=== PATIENT | female | born 1960 ===

== ENCOUNTER 2017-05-06 10:10 | Day surgery (SDC) | payer OTHER, BC ==
[2017-05-02 17:58] VITALS: BMI 35.4
[2017-05-06] MEDS ORDERED: Lactated Ringer's 1,000 ML IV ONE ×2 (10:57→13:05)
[2017-05-06] MEDS ORDERED: Lidocaine 1% Inj (20ml) ONE (11:58)
[2017-05-06] MEDS ORDERED: Midazolam 2 MG/2 ML VIAL ONE (12:04)
[2017-05-06] MEDS ORDERED: Propofol 10 mg/ml Inj (20 ML) ONE (12:04)
--- NOTE | 2017-05-06 12:26 | CP.SDSHP ---
Same Day Surgery H & P - History Proposed Procedure: US guided FNA of right thyroid nodule Pre-Op Diagnosis: right thyroid nodule - Allergies Allergies: Allergies ZAMZAM Inhibitors Allergy (Intermediate, Verified 05/02/17 17:59) ANGIOEDEMA - Physical Exam Vital Signs: Vital Signs 05/06/17 05/06/17 05/06/17 10:26 10:30 12:20 Temperature 98.3 F 97.6 F Pulse Rate 89 89 87 Respiratory 20 18 Rate Blood Pressure 153/83 H 166/83 H O2 Sat by Pulse 95 100 Oximetry Mental Status: Alert & Oriented x3 Neuro: WNL Heart: WNL - Impression Impression: Pt with right thyroid nodule referred for US guided FNA. Pt. Evaluated Today:Candidate for Anesthesia & Procedure: Yes (ASA 2 Malampati 4) - Date & Time Date: 05/06/17 Time: 12:00 Short Stay Discharge - Short Stay Discharge Admitting Diagnosis/Reason for Visit: E04.1 Referrals: Vasiliy Spears MD [Primary Care Provider] - Progress Note/Discharge Note with Instructions: S/P RIGHT thyroid FNA.
--- NOTE | 2017-05-06 12:28 | PCM.SURG1 ---
Surgeon's Initial Post Op Note - Surgeon's Notes Surgeon: Chavez Price MD Internal Medicine Physician Assistant: NONE Type of Anesthesia: IV Sedation, Local Pre-Operative Diagnosis: thyroid nodule. Operative Findings: 1.9 cm right thyroid nodule Post-Operative Diagnosis: Right thyroid nodule Operation Performed: US guided FNA of thyroid nodule. Specimen/Specimens Removed: 25 g FNA x 4 passes Estimated Blood Loss: EBL {In ML}: 0 Blood Products Given: N/A Drains Used: No Drains Post-Op Condition: Good Date of Surgery/Procedure: 05/06/17 Time of Surgery/Procedure: 12:25
[2017-05-06] MEDS ORDERED: Lactated Ringer's 1,000 ML IV SCH (12:33)
[2017-05-06 13:36] VITALS: RESP 18
[2017-05-06 13:52] VITALS: BP 147/97; PULSE 74; TEMP 98; O2SAT 98
--- NOTE | 2017-05-07 14:13 | US ---
PROCEDURE: Date of Procedure: 05/06/2017 PROCEDURE: 1. Ultrasound guided FNA of right thyroid nodule, CPT 26875 2. Ultrasound guidance for FNA, [address] Medications: 3 cc 1% Lidocaine, patient was sedated by anesthesiologist along with physiologic monitoring HISTORY: Enlarged right thyroid nodule. TECHNIQUE: Following informed consent and procedure time-out, a limited ultrasound patient's neck confirmed the presence of a 1.9 cm complex right thyroid nodule which is predominantly solid. After the patient's neck was prepped and draped in the usual sterile fashion, the skin was anesthetized with 1% lidocaine. Ultrasound-guided fine needle aspiration was then performed of the dominant right thyroid nodule. A total of 4 passes were made into the nodule with 25 gauge needle under ultrasound guidance. The FNA specimen was sent for routine pathology. Post biopsy ultrasound showed no hematoma. IMPRESSION: Ultrasound-guided FNA of the dominant right thyroid nodule.
== END 2017-05-06 12:55 | disposition home or self-care (01) ==
LOC: H.OPSURG 10:10
PROVIDERS: ATTEND Internal Medicine Endocrinology, Diabetes & Metabolism
DX: E04.1 Nontoxic single thyroid nodule (principal)

== ENCOUNTER 2018-05-19 09:31 | Inpatient (IN) | payer OTHER, BC ==
[2018-05-19 09:38] VITALS: BMI 35.4
[2018-05-19] MEDS ORDERED: guaiFENesin-DM 600-30 mg ER Tab PO ONE (11:08)
--- NOTE | 2018-05-19 11:11 | ED PDOC ---
HPI: CCC, URI, Sore Throat Chief Complaint (Provider): Cold like symptoms/vomiting History Per: Patient History/Exam Limitations: no limitations Onset/Duration Of Symptoms: Days <Jessika Peres - Last Filed: 05/19/18 14:43> <Larry Mae - Last Filed: 05/20/18 14:41> Time Seen by Provider: 05/19/18 10:12 Chief Complaint (Nursing): GI Problem Additional Complaint(s): 57 y/o Female with PMHx of HTN, and Hypothyroidism presents to ED complaining cold like symptoms since last Friday. Patient states that last friday she started with nasal congestion, runny nose, productive cough associated with green sputum production, low grade fevers, body aches. Started taking Z-pack on Friday, Tylenol, and mucinex by herself. Reports this morning she had 3 NBNB emesis, but denies abdominal pain, urinary symptoms, diarrheas. States she feels her symptoms are not getting better. Denies headaches, neck pain, dizziness, chest pain, SOB, chills. 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 PMD: Dr. Spears (Jessika Peres) Supervising Attending Note - Supervising Attending Note The Documented history was done by the: Physician Assembler [employer], Attending Physician The documented physical exam was done by the: Physician Assembler [employer], Attending Physician The documented procedures were done by the: Physician Assembler [employer]orescent Lights, Attending Physician - Attestation: I have personally seen and examined this patient.: Yes I have fully participated in the care of the patient.: Yes I have reviewed all pertinent clinical information, including history, physical exam and plan: Yes <Larry Mae - Last Filed: 05/20/18 14:41> Past Medical History - Medical History PMH: HTN, Hypothyroidism Denies: Chronic Kidney Disease - Surgical History Surgical History: Endoscopy - Family History Family History: States: Unknown Family Hx - Social History Current smoker - smoking cessation education provided: No Ex-Smoker (has not smoked in the last 12 months): No Alcohol: None Drugs: Denies <Jessika Peres - Last Filed: 05/19/18 14:43> Reviewed: Historical Data, Nursing Documentation, Vital Signs <Larry Mae - Last Filed: 05/20/18 14:41> Vital Signs: Last Vital Signs Temp 99.2 F 05/20/18 12:10 Pulse 81 05/20/18 12:10 Resp 20 05/20/18 12:10 BP 137/71 05/20/18 09:02 Pulse Ox 99 05/20/18 12:10 - Home Medications Home Medications: Ambulatory Orders Medication Instructions Recorded amLODIPine [Norvasc] 10 mg PO DAILY 05/02/17 Azithromycin [Z-Cali] 250 mg PO ASDIR 05/19/18 Levothyroxine [Synthroid] 50 mg PO DAILY 05/19/18 Multivitamin [Multi-Vitamin Daily] 1 tab PO DAILY 05/19/18 hydroCHLOROthiazide [Hydrodiuril] 25 mg PO DAILY 05/19/18 - Allergies Allergies/Adverse Reactions: Allergies Allergy/AdvReac Type Severity Reaction Status Date / Time ZAMZAM Inhibitors Allergy Intermediate ANGIOEDEMA Verified 05/02/17 17:59 Curb-65 Severity Score - CURB-65 Severity Score Respiratory Rate greater than/equal to 30: No Systolic BP <90 or Diastolic BP less than/equal 60mmHg: No Age >64: No Curb-65 Score: 0 Percentage 30-day mortality: 0.6% <Jessika Peres - Last Filed: 05/19/18 14:43> - CURB-65 Severity Score Confusion: No Bun >19mg/dl (>7mmol/L): No Curb-65 Score: 0 Percentage 30-day mortality: 0.6% <Larry Mae - Last Filed: 05/20/18 14:41> Review of Systems ROS Statement: Except As Marked, All Systems Reviewed And Found Negative (as per HPI) <Jessika Peres - Last Filed: 05/19/18 14:43> ROS Statement: Except As Marked, All Systems Reviewed And Found Negative <Larry Mae - Last Filed: 05/20/18 14:41> Physical Exam - Reviewed Nursing Documentation Reviewed: Yes Vital Signs Reviewed: Yes - Physical Exam Appears: Positive for: Non-toxic, No Acute Distress Head Exam: Positive for: ATRAUMATIC, NORMOCEPHALIC Skin: Positive for: Normal Color, Warm, Dry. Negative for: Mottled, Cyanosis Eye Exam: Positive for: Normal appearance. Negative for: Conjunctival injection , Scleral icterus ENT: Positive for: Nasal Congestion, Pharyngeal Erythema. Negative for: Sinus Pain/Drainage, Tonsillar Exudate Neck: Positive for: Normal, Supple Cardiovascular/Chest: Positive for: Regular Rate, Rhythm. Negative for: Chest Non Tender, Edema, Murmur, Bradycardia, Tachycardia Respiratory: Positive for: Normal Breath Sounds. Negative for: Decreased Breath Sounds, Accessory Muscle Use, Crackles, Rales, Rhonchi, Wheezing, Respiratory Distress Gastrointestinal/Abdominal: Positive for: Bowel Sounds (present), Soft. Negative for: Tenderness, Distended, Guarding, Rebound Neurologic/Psych: Positive for: Alert, Oriented <Jessika Peres - Last Filed: 05/19/18 14:43> - Reviewed Nursing Documentation Reviewed: Yes <Larry Mae - Last Filed: 05/20/18 14:41> - Laboratory Results Result Diagrams: 05/19/18 13:25 05/19/18 13:25 - ECG O2 Sat by Pulse Oximetry: 95 <Jessika Peres - Last Filed: 05/19/18 14:43> - Laboratory Results Result Diagrams: 05/20/18 05:45 05/20/18 05:45 <Larry Mae - Last Filed: 05/20/18 14:41> Medical Decision Making: Fever -associated with upper respiratory symptoms, and cough -most likely 2/2 to URI -CXR -influenza A B -Tylenol for fever -mucinex DM for cough Vomiting -possible associated with URI -zofran 4 mg ODT once -PO challenge after zofran re-evaluation case discussed with Dr. Mae Re-evaluation Influenza test negative CXR reported as left lower lobe infiltrate send for VBG, Blood Cx, CBC start abx: ceftriaxone 1 gm IV Levofloxacin 750 mg IV Patient will be admitted under Dr. Spears service. Dr. Spears was called by Dr. Mae. Pending return call from Dr. Spears (Jessika Peres) Disposition - Patient ED Disposition Is Patient to be Admitted: Yes Discussed With : Larry Mae - Disposition Disposition Time: 14:45 <Jessika Peres - Last Filed: 05/19/18 14:43> - Patient ED Disposition Is Patient to be Admitted: Yes Discussed With DrAndres: Vasiliy Spears Doctor Will See Patient In The: Hospital Counseled Patient/Family Regarding: Studies Performed, Diagnosis - Pt Status Changed To: Hospital Disposition Of: Inpatient - Admit Certification Admit to Inpatient:: After my assessment, the patient will require hospitalization for at least two midnights. This is because of the severity of symptoms shown, intensity of services needed, and/or the medical risk in this patient being treated as an outpatient. - POA Present On Arrival: None Core Measure Indicators: Pneumonia <Larry Mae A - Last Filed: 05/20/18 14:41> - Clinical Impression Clinical Impression: Pneumonia, Sepsis - Disposition Condition: FAIR
--- NOTE | 2018-05-19 12:28 | RAD ---
HISTORY: cough COMPARISON: No prior. TECHNIQUE: Chest PA and lateral FINDINGS: LUNGS: Left lower lobe infiltrate. . There also appears to be some minor linear atelectasis and or scarring right lung base. PLEURA: No significant pleural effusion identified. No pneumothorax apparent. CARDIOVASCULAR: Normal. OSSEOUS STRUCTURES: No significant abnormalities. VISUALIZED UPPER ABDOMEN: Normal. OTHER FINDINGS: None. IMPRESSION: Left lower lobe infiltrate. There also appears to be some minor linear atelectasis and or scarring right lung base. .
[2018-05-19] MEDS ORDERED: levoFLOXacin 750 mg in D5W 150 ML BAG IVPB STA (12:52)
[2018-05-19] MEDS ORDERED: levoFLOXacin 750 mg in D5W 750 MG/150 ML BAG IVPB ONE ×2 (13:15→13:20)
[2018-05-19 13:32] LABS: VENOUS BLOOD GAS BASE EXCESS 4.7 mmol/L (0.0-2.0); VENOUS BLOOD GAS PCO2 42 mmHg (40-60); VENOUS BLOOD GAS PO2 46 mm/Hg (30-55); VENOUS BLOOD PH 7.45 (7.32-7.43)
[2018-05-19 13:41] LABS: BASO % 0.4 % (0.0-2.0); HEMOGLOBIN 11.4 g/dL (12.0-16.0); LYMPH # 0.6 K/uL (1.0-4.3); LYMPH % 7.3 % (20.0-40.0); MEAN CELL VOLUME 79.1 fl (81.0-99.0); MEAN CORPUSCULAR HEMOGLOBIN 26.5 pg (27.0-31.0); MEAN CORPUSCULAR HGB CONC 33.5 g/dL (33.0-37.0); MEAN PLATELET VOLUME 8.7 fl (7.2-11.7); MONO # 0.2 K/uL (0.0-0.8); MONO % 2.1 % (0.0-10.0); NEUT # 7.2 K/uL (1.8-7.0); NEUT % 90.2 % (50.0-75.0); PLATELET COUNT 352 K/uL (130-400); RBC 4.31 Mil/uL (3.80-5.20); RED CELL DISTRIBUTION WIDTH 17.9 % (11.5-14.5)
[2018-05-19 13:44] LABS: BLOOD UREA NITROGEN 19 mg/dl (7-17); CALCIUM 8.9 mg/dL (8.4-10.2); GFR AFRICAN-AMERICAN > 60; GFR NON-AFRICAN AMERICAN > 60
[2018-05-19] MEDS ORDERED: Potassium Chloride 20 mEq ER Tab PO ONE ×2 (13:44→14:27)
--- NOTE | 2018-05-19 14:09 | CARD ---
APPROVED REPORT EKG Measurement Heart [id number] <Conclusion> Normal sinus rhythm Nonspecific ST abnormality Abnormal ECG
[2018-05-19 14:59] LABS: BANDS 2 % (0-2); LYMPHOCYTE 10 % (20-50); MONOCYTE 1 % (0-10); NEUTROPHIL 87 % (42-75); PLATELET ESTIMATE NORMAL (NORMAL); TOTAL CELLS COUNTED 100
[2018-05-19 15:00] LABS: ANISOCYTOSIS SLIGHT; HYPOCHROMIC SLIGHT
[2018-05-19] MEDS ORDERED: Sodium Chloride 3% for Inhalation 4 ML VIAL.NEB IH PRN (19:34)
[2018-05-19] MEDS: Potassium Chl 40 mEq in D5-1/2 1,000 ML IV SCH (22:03)
[2018-05-20] MEDS: Levothyroxine 50 MCG TAB PO SCH (06:27)
[2018-05-20 06:38] LABS: BASO % 0.3 % (0.0-2.0); EOS % 0.1 % (0.0-4.0); HEMOGLOBIN 10.8 g/dL (12.0-16.0); LYMPH # 0.9 K/uL (1.0-4.3); LYMPH % 13.6 % (20.0-40.0); MEAN CELL VOLUME 77.7 fl (81.0-99.0); MEAN CORPUSCULAR HGB CONC 34.8 g/dL (33.0-37.0); MEAN PLATELET VOLUME 8.5 fl (7.2-11.7); MONO # 0.5 K/uL (0.0-0.8); NEUT # 5.3 K/uL (1.8-7.0); RBC 3.99 Mil/uL (3.80-5.20); RED CELL DISTRIBUTION WIDTH 17.5 % (11.5-14.5); WHITE BLOOD COUNT 6.8 K/uL (4.8-10.8)
[2018-05-20 07:07] LABS: T4 9.18 ug/dl (5.5-11.0)
[2018-05-20 07:14] LABS: BLOOD UREA NITROGEN 12 mg/dl (7-17); GFR AFRICAN-AMERICAN > 60; GFR NON-AFRICAN AMERICAN > 60
--- NOTE | 2018-05-20 08:54 | CP.PCM.HP ---
History of Present Illness - History of Present Illness History of Present Illness: 57 YR OLD FEMALE ADMITTED VIA THE ER BECAUSE OF COUGH,SORETHROAT,NAUSEA AND VOMITING AND CXR FINDING OF PNEUMONIA. HISTORY OF URI SYMPTOMS X SEVERAL DAYS,NOT CONTROLLED BY ZITHROMAX. HX OF HYPOTHYROIDISM AND HYPERTENSION. Present on Admission - Present on Admission Any Indicators Present on Admission: Yes Past Patient History - Past Medical History & Family History Past Medical History?: Yes - Past Social History Alcohol: None Drugs: Denies - CARDIAC Hx Hypertension: Yes - PULMONARY Hx Respiratory Disorders: No - NEUROLOGICAL Hx Neurological Disorder: No - HEENT Hx HEENT Problems: No - RENAL Hx Chronic Kidney Disease: No - ENDOCRINE/METABOLIC Hx Endocrine Disorders: Yes Hx Hypothyroidism: Yes - HEMATOLOGICAL/ONCOLOGICAL Hx Blood Disorders: No - INTEGUMENTARY Hx Dermatological Problems: No - MUSCULOSKELETAL/RHEUMATOLOGICAL Hx Musculoskeletal Disorders: No Hx Falls: No - GASTROINTESTINAL Hx Gastrointestinal Disorders: No - GENITOURINARY/GYNECOLOGICAL Hx Genitourinary Disorders: No - PSYCHIATRIC Hx Psychophysiologic Disorder: No Hx Substance Use: No - SURGICAL HISTORY Hx Surgeries: No - ANESTHESIA Hx Anesthesia: Yes Hx Anesthesia Reactions: No Meds Allergies/Adverse Reactions: Allergies Allergy/AdvReac Type Severity Reaction Status Date / Time ZAMZAM Inhibitors Allergy Intermediate ANGIOEDEMA Verified 05/02/17 17:59 Physical Exam - Constitutional Appears: Well, In Acute Distress - Head Exam Head Exam: ATRAUMATIC, NORMAL INSPECTION, NORMOCEPHALIC - Eye Exam Eye Exam: EOMI, Normal appearance, PERRL Pupil Exam: NORMAL ACCOMODATION, PERRL - ENT Exam ENT Exam: Mucous Membranes Moist, Normal Exam - Neck Exam Neck exam: Positive for: Normal Inspection - Respiratory Exam Respiratory Exam: Prolonged Expiratory Phase, Rales, NORMAL BREATHING PATTERN - Cardiovascular Exam Cardiovascular Exam: REGULAR RHYTHM - GI/Abdominal Exam GI & Abdominal Exam: Normal Bowel Sounds, Soft. absent: Tenderness - Rectal Exam Rectal Exam: NORMAL INSPECTION - Extremities Exam Extremities exam: Positive for: normal inspection - Back Exam Back exam: NORMAL INSPECTION - Neurological Exam Neurological exam: Alert, CN II-XII Intact, Normal Gait, Oriented x3, Reflexes Normal - Psychiatric Exam Psychiatric exam: Normal Affect, Normal Mood - Skin Skin Exam: Dry, Intact, Normal Color, Warm Results - Vital Signs Recent Vital Signs: Last Vital Signs Temp 98.4 F 05/20/18 08:15 Pulse 86 05/20/18 08:15 Resp 18 05/20/18 08:15 BP 137/71 05/20/18 08:15 Pulse Ox 98 05/20/18 08:15 - Labs Result Diagrams: 05/20/18 05:45 05/20/18 05:45 Labs: Laboratory Results - last 24 hr 05/19/18 05/19/18 05/19/18 12:00 13:00 13:25 WBC RBC Hgb Hct MCV MCH MCHC RDW Plt Count MPV Neut % (Auto) Lymph % (Auto) Kay % (Auto) Eos % (Auto) Baso % (Auto) Neut # (Auto) Lymph # (Auto) Kay # (Auto) Eos # (Auto) Baso # (Auto) Neutrophils % (Manual) Band Neutrophils % Lymphocytes % (Manual) Monocytes % (Manual) Platelet Estimate Hypochromasia (manual) Anisocytosis (manual) pO2 46 VBG pH 7.45 H VBG pCO2 42 VBG HCO3 28.2 VBG Total CO2 30.5 H VBG O2 Sat (Calc) 87.5 H VBG Base Excess 4.7 H VBG Potassium 2.7 L Sodium 138.0 140 Chloride 104.0 101 Glucose 128 H Lactate 1.6 FiO2 21.0 Potassium 2.9 L Carbon Dioxide 27 Anion Gap 15 BUN 19 H Creatinine 0.8 Est GFR ( Amer) > 60 Est GFR (Non-Af Amer) > 60 Random Glucose 123 H Calcium 8.9 Thyroxine (T4) TSH 3rd Generation Venous Blood Potassium 2.7 L Influenza Typ A,B (EIA) Negative for flu a/b 05/19/18 05/20/18 05/20/18 13:25 05:45 05:45 WBC 8.0 6.8 RBC 4.31 3.99 Hgb 11.4 L 10.8 L Hct 34.1 31.0 L MCV 79.1 L D 77.7 L MCH 26.5 L 27.0 MCHC 33.5 34.8 RDW 17.9 H 17.5 H Plt Count 352 344 MPV 8.7 8.5 Neut % (Auto) 90.2 H 78.0 H Lymph % (Auto) 7.3 L 13.6 L Kay % (Auto) 2.1 8.0 Eos % (Auto) 0.0 0.1 Baso % (Auto) 0.4 0.3 Neut # (Auto) 7.2 H 5.3 Lymph # (Auto) 0.6 L 0.9 L Kay # (Auto) 0.2 0.5 Eos # (Auto) 0.0 0.0 Baso # (Auto) 0.0 0.0 Neutrophils % (Manual) 87 H Band Neutrophils % 2 Lymphocytes % (Manual) 10 L Monocytes % (Manual) 1 Platelet Estimate Normal Hypochromasia (manual) Slight Anisocytosis (manual) Slight pO2 VBG pH VBG pCO2 VBG HCO3 VBG Total CO2 VBG O2 Sat (Calc) VBG Base Excess VBG Potassium Sodium 138 Chloride 101 Glucose Lactate FiO2 Potassium 3.2 L Carbon Dioxide 26 Anion Gap 14 BUN 12 Creatinine 0.7 Est GFR ( Amer) > 60 Est GFR (Non-Af Amer) > 60 Random Glucose 147 H Calcium 8.0 L Thyroxine (T4) 9.18 TSH 3rd Generation 1.70 Venous Blood Potassium Influenza Typ A,B (EIA) - Imaging and Cardiology Chest x-ray Status: Report reviewed by me (PNEUMONIA LLL) Assessment & Plan - Assessment and Plan (Free Text) Assessment: PNEUMONIA LLL HYPERTENSION HYPOTHYROIDISM HYPOKALEMIA Plan: IV ANTIBIOTICS INFECTIOUS DZ CONSULT OXYGEN K+SUPPLEMENTS - Date & Time Date: 05/20/18 Time: 08:57
[2018-05-20] MEDS ORDERED: levoFLOXacin 500 mg in D5W 500 MG/100 ML BAG IVPB SCH (09:00)
[2018-05-20] MEDS: Lactobacillus Acidophilus 500 MU Cap PO SCH ×2 (09:02→17:38)
[2018-05-20] MEDS: Potassium Chl 40 mEq in D5-1/2 1,000 ML IV SCH ×2 (09:04→20:33)
[2018-05-20] MEDS: levoFLOXacin 500 mg in D5W 500 MG/100 ML BAG IVPB SCH (09:06)
[2018-05-20] MEDS: Promethazine DM 12.5 mg-30 mg/10 ml Syrup PO PRN ×2 (12:06→20:37)
--- NOTE | 2018-05-20 13:12 | CP.PCM.CON ---
History of Present Illness - History of Present Illness History of Present Illness: 57 y/o Female presents to ED complaining cold like symptoms since last Friday. Patient states that last friday she started with nasal congestion, runny nose, productive cough associated with green sputum production, low grade fevers, body aches. Started taking Z-pack on Friday, Tylenol, and mucinex by herself. Reports this morning she had 3 NBNB emesis, but denies abdominal pain, urinary symptoms, diarrheas. States she feels her symptoms are not getting better. Denies headaches, neck pain, dizziness, chest pain, SOB, chills. 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 Found to have LLL infiltrate - Medical History PMH: HTN, Hypothyroidism Denies: Chronic Kidney Disease Review of Systems - Review of Systems All systems: reviewed and no additional remarkable complaints except - Constitutional Constitutional: As Per HPI - EENT Eyes: absent: As Per HPI, Blind Spots, Blurred Vision, Change in Vision, Decreased Night Vision, Diplopia, Discharge, Dry Eye, Exophthalmos, Floaters, Irritation, Itchy Eyes, Loss of Peripheral Vision, Pain, Photophobia, Requires Corrective Lenses, Sees Flashes, Spots in Vision, Tunnel Vision, Other Visual Disturbances, Loss of Vision, Other Ears: absent: As Per HPI, Decreased Hearing, Ear Discharge, Ear Pain, Tinnitus, Abnormal Hearing, Disequilibrium, Dizziness, Other Nose/Mouth/Throat: absent: As Per HPI, Epistaxis, Nasal Congestion, Nasal Discharge, Nasal Obstruction, Nasal Trauma, Nose Pain, Post Nasal Drip, Sinus Pain, Sinus Pressure, Bleeding Gums, Change in Voice, Dental Pain, Dry Mouth, Dysphagia, Halitosis, Hoarsness, Lip Swelling, Mouth Lesions, Mouth Pain, Odynophagia, Sore Throat, Throat Swelling, Tongue Swelling, Facial Pain, Neck Pain, Neck Mass, Other - Cardiovascular Cardiovascular: absent: As Per HPI, Acrocyanosis, Chest Pain, Chest Pain at Rest , Chest Pain with Activity, Claudication, Diaphoresis, Dyspnea, Dyspnea on Exertion, Edema, Irregular Heart Rhythm, Pain Radiating to Arm/Neck/Jaw, Leg Edema, Leg Ulcers, Lightheadedness, Orthopnea, Palpitations, Paroxysmal Nocturnal Dyspnea, Pedal Edema, Radiating Pain, Rapid Heart Rate, Slow Heart Rate, Syncope, Other - Respiratory Respiratory: As Per HPI, Cough. absent: Dyspnea, Hemoptysis - Gastrointestinal Gastrointestinal: absent: As Per HPI, Abdominal Pain, Belching, Bloating, Change in Bowel Habits, Change in Stool Character, Coffee Ground Emesis, Constipation, Cramping, Diarrhea, Dyspepsia, Dysphagia, Early Satiety, Excessive Flatus, Fecal Incontinence, Heartburn, Hematemesis, Hematochezia, Loose Stools, Melena, Nausea, Odynophagia, Temesmus, Vomiting, Other - Genitourinary Genitourinary: absent: As Per HPI, Change in Urinary Stream, Difficulty Urinating, Dysuria, Flank Pain, Hematuria, Pyuria, Nocturia, Urinary Incontinence, Urinary Frequency, Urinary Hesitance, Urinary Urgency, Voiding Freq/Small Amts, Freq UTI, Hx Renal/Bladder Calculi, Hx /Renal Surgery, Bladder Distension, Other - Reproductive: Female Reproductive:Female: absent: As Per HPI, Amenorrhea, Amenorrhea/ Control, Currently Menstual, Cycle <21 Days, Cycle >35 Days, Cycle Variable, Menses 1-7 Days, Menses >/= 8 Days, Menses Variable, Cycle > 4 Weeks Between, No Menses for 6 Months, Heavy Menses, Light Menses, Normal Menses, Spotting Between Cycles , S/P Hysterectomy, Menopausal, Post Menopausal, Premenarche, Abnormal Vaginal Bleeding, Dysmenorrhea, Dyspareunia, Genital Lesions, Genital Pruritis, Pelvic Pain, Prolapse Symptoms, Sexual Dysfunction, Vaginal Discharge, Vaginal Dryness , Vaginal Odor, Vaginal Pruritis, Other - Menstruation Menstruation: absent: As Per HPI, Amenorrhea, Amenorrhea/ Control, Currently Menstual, Cycle <21 Days, Cycle >35 Days, Cycle Variable, Menses 1-7 Days, Menses >/= 8 Days, Menses Variable, Cycle > 4 Weeks Between, No Menses for 6 Months, Heavy Menses, Light Menses, Normal Menses, Spotting Between Cycles , S/P Hysterectomy, Menopausal, Post Menopausal, Premenarche, Abnormal Vaginal Bleeding, Dysmenorrhea, Other - Musculoskeletal Musculoskeletal: absent: As Per HPI, Abnormal Gait, Arthralgias, Atrophy, Back Pain, Deformity, Joint Swelling, Limited Range of Motion, Loss of Height, Muscle Cramps, Muscle Weakness, Myalgias, Neck Pain, Numbness, Radiating Pain into Limb, Stiffness, Tingling, Other - Integumentary Integumentary: absent: As Per HPI, Acne, Alopecia, Bleeding Lesions, Change in Hair, Change in Nails, Change in Pigmentation, Changing Lesions, Dry Skin, Erythema, Furuncle, Hirsutism, Lesions, New Lesions, Non-Healing Lesions, Photosensitivity, Pruritus, Rash, Skin Pain, Skin Ulcer, Sores, Striae, Swelling , Unusual Bruising, Wounds, Jaundice, Other - Neurological Neurological: absent: As Per HPI, Abnormal Gait, Abnormal Hearing, Abnormal Movements, Abnormal Speech, Behavioral Changes, Burning Sensations, Confusion, Convulsions, Disequilibrium, Dizziness, Numbness, Focal Weakness, Frequent Falls , Headaches, Lack of Coordination, Loss of Vision, Memory Loss, Paresthesias, Radicular Pain, Restless Legs, Sensory Deficit, Syncope, Tingling, Tremor, Vertigo, Weakness, Other Visual Disturbances, Other - Psychiatric Psychiatric: absent: As Per HPI, Abnormal Sleep Pattern, Anhedonia, Anxiety, Auditory Hallucinations, Behavioral Changes, Change in Appetite, Change in Libido, Confusion, Depression, Difficulty Concentrating, Hallucinations, Homicidal Ideation, Hopelessness, Irritability, Memory Loss, Mood Swings, Panic Attacks, Paranoia, Suicidal Ideation, Visual Hallucinations, Tactile Hallucinations, Other - Endocrine Endocrine: absent: As Per HPI, Change in Body Appearance, Change in Libido, Cold Intolorance, Deepening of Voice, Excessive Sweating, Fatigue, Flushing, Heat Intolorance, Increase in Ring/Shoe/Hat Size, Palpitations, Polydipsia, Polyphagia, Polyuria, Other - Hematologic/Lymphatic Hematologic: absent: As Per HPI, Easy Bleeding, Easy Bruising, Lymphadenopathy, Other Past Patient History - Past Medical History & Family History Past Medical History?: Yes - Past Social History Alcohol: None Drugs: Denies - CARDIAC Hx Hypertension: Yes - PULMONARY Hx Respiratory Disorders: No - NEUROLOGICAL Hx Neurological Disorder: No - HEENT Hx HEENT Problems: No - RENAL Hx Chronic Kidney Disease: No - ENDOCRINE/METABOLIC Hx Endocrine Disorders: Yes Hx Hypothyroidism: Yes - HEMATOLOGICAL/ONCOLOGICAL Hx Blood Disorders: No - INTEGUMENTARY Hx Dermatological Problems: No - MUSCULOSKELETAL/RHEUMATOLOGICAL Hx Musculoskeletal Disorders: No Hx Falls: No - GASTROINTESTINAL Hx Gastrointestinal Disorders: No - GENITOURINARY/GYNECOLOGICAL Hx Genitourinary Disorders: No - PSYCHIATRIC Hx Psychophysiologic Disorder: No Hx Substance Use: No - SURGICAL HISTORY Hx Surgeries: No - ANESTHESIA Hx Anesthesia: Yes Hx Anesthesia Reactions: No Meds Allergies/Adverse Reactions: Allergies Allergy/AdvReac Type Severity Reaction Status Date / Time ZAMZAM Inhibitors Allergy Intermediate ANGIOEDEMA Verified 05/02/17 17:59 - Medications Medications: Current Medications Acetaminophen (Tylenol 325mg Tab) 650 mg PO Q4 PRN PRN Reason: Fever >100.4 F Last Admin: 05/19/18 20:20 Dose: 650 mg Amlodipine Besylate (Norvasc) 10 mg PO DAILY [facility] Last Admin: 05/20/18 09:02 Dose: 10 mg Famotidine (Pepcid) 20 mg IVP Q12 [facility] Last Admin: 05/20/18 09:11 Dose: 20 mg Levofloxacin/Dextrose (Levaquin 500mg) 500 mg in 100 mls @ 100 mls/hr IVPB DAILY [facility] PRN Reason: Protocol Last Admin: 05/20/18 09:06 Dose: 100 mls/hr Ceftriaxone Sodium 1 gm/ (Sodium Chloride) 100 mls @ 100 mls/hr IVPB DAILY [facility] PRN Reason: Protocol Last Admin: 05/20/18 10:29 Dose: 100 mls/hr Potassium Chloride/Dextrose/Sod Cl (Potassium Chl 40 Meq In D5-1/2ns) 1,000 mls @ 100 mls/hr IV .Q10H [facility] Stop: 05/20/18 19:47 Last Admin: 05/20/18 09:04 Dose: 100 mls/hr Lactobacillus Acidophilus (Bacid Acidophilus) 1 cap PO BID [facility] Last Admin: 05/20/18 09:02 Dose: 1 cap Levothyroxine Sodium (Synthroid) 50 mcg PO DAILY@0630 [facility] Last Admin: 05/20/18 06:27 Dose: 50 mcg Promethazine HCl/Dextromethorphan (Phenergan Dm Syrup) 10 ml PO Q6 PRN PRN Reason: Cough Last Admin: 05/20/18 12:06 Dose: 10 ml Physical Exam - Constitutional Appears: Non-toxic, Chronically Ill - Head Exam Head Exam: ATRAUMATIC, NORMAL INSPECTION, NORMOCEPHALIC - Eye Exam Eye Exam: absent: Scleral icterus - ENT Exam ENT Exam: Mucous Membranes Dry, Normal External Ear Exam - Neck Exam Neck exam: Negative for: Lymphadenopathy - Respiratory Exam Respiratory Exam: Decreased Breath Sounds, Prolonged Expiratory Phase, Rales, Rhonchi - Cardiovascular Exam Cardiovascular Exam: REGULAR RHYTHM, +S1, +S2 - GI/Abdominal Exam GI & Abdominal Exam: Diminished Bowel Sounds, Distended, Soft. absent: Tenderness - Rectal Exam Rectal Exam: Deferred - Exam Exam: NORMAL INSPECTION - Extremities Exam Extremities exam: Positive for: pedal pulses present. Negative for: calf tenderness, pedal edema, tenderness - Back Exam Back exam: absent: CVA tenderness (L), CVA tenderness (R), paraspinal tenderness - Neurological Exam Neurological exam: Alert, CN II-XII Intact, Oriented x3, Reflexes Normal - Psychiatric Exam Psychiatric exam: Normal Mood - Skin Skin Exam: Dry Results - Vital Signs Recent Vital Signs: Last Vital Signs Temp 99.2 F 05/20/18 12:10 Pulse 81 05/20/18 12:10 Resp 20 05/20/18 12:10 BP 137/71 05/20/18 09:02 Pulse Ox 99 05/20/18 12:10 - Labs Result Diagrams: 05/20/18 05:45 05/20/18 05:45 Labs: Laboratory Results - last 24 hr 05/19/18 05/19/18 05/19/18 13:00 13:25 13:25 WBC 8.0 RBC 4.31 Hgb 11.4 L Hct 34.1 MCV 79.1 L D MCH 26.5 L MCHC 33.5 RDW 17.9 H Plt Count 352 MPV 8.7 Neut % (Auto) 90.2 H Lymph % (Auto) 7.3 L [place] % (Auto) 2.1 Eos % (Auto) 0.0 Baso % (Auto) 0.4 Neut # (Auto) 7.2 H Lymph # (Auto) 0.6 L [place] # (Auto) 0.2 Eos # (Auto) 0.0 Baso # (Auto) 0.0 Neutrophils % (Manual) 87 H Band Neutrophils % 2 Lymphocytes % (Manual) 10 L Monocytes % (Manual) 1 Platelet Estimate Normal Hypochromasia (manual) Slight Anisocytosis (manual) Slight pO2 46 VBG pH 7.45 H VBG pCO2 42 VBG HCO3 28.2 VBG Total CO2 30.5 H VBG O2 Sat (Calc) 87.5 H VBG Base Excess 4.7 H VBG Potassium 2.7 L Sodium 138.0 140 Chloride 104.0 101 Glucose 128 H Lactate 1.6 FiO2 21.0 Potassium 2.9 L Carbon Dioxide 27 Anion Gap 15 BUN 19 H Creatinine 0.8 Est GFR ( Amer) > 60 Est GFR (Non-Af Amer) > 60 Random Glucose 123 H Calcium 8.9 Thyroxine (T4) TSH 3rd Generation Venous Blood Potassium 2.7 L 05/20/18 05/20/18 05:45 05:45 WBC 6.8 RBC 3.99 Hgb 10.8 L Hct 31.0 L MCV 77.7 L MCH 27.0 MCHC 34.8 RDW 17.5 H Plt Count 344 MPV 8.5 Neut % (Auto) 78.0 H Lymph % (Auto) 13.6 L [place] % (Auto) 8.0 Eos % (Auto) 0.1 Baso % (Auto) 0.3 Neut # (Auto) 5.3 Lymph # (Auto) 0.9 L [place] # (Auto) 0.5 Eos # (Auto) 0.0 Baso # (Auto) 0.0 Neutrophils % (Manual) Band Neutrophils % Lymphocytes % (Manual) Monocytes % (Manual) Platelet Estimate Hypochromasia (manual) Anisocytosis (manual) pO2 VBG pH VBG pCO2 VBG HCO3 VBG Total CO2 VBG O2 Sat (Calc) VBG Base Excess VBG Potassium Sodium 138 Chloride 101 Glucose Lactate FiO2 Potassium 3.2 L Carbon Dioxide 26 Anion Gap 14 BUN 12 Creatinine 0.7 Est GFR ( Amer) > 60 Est GFR (Non-Af Amer) > 60 Random Glucose 147 H Calcium 8.0 L Thyroxine (T4) 9.18 TSH 3rd Generation 1.70 Venous Blood Potassium Assessment & Plan (1) Pneumonia Status: Acute - Assessment and Plan (Free Text) Assessment: LLL pneumonia in a 57 yo female with Hx HTN and hypothyroid Has been traveling and stayed at hotels in [place] await Legionella ag anemia noted- routine follow up with purchase analyst recommended sgree with current IV antibiotics
[2018-05-21] MEDS: Promethazine DM 12.5 mg-30 mg/10 ml Syrup PO PRN ×2 (01:42→23:04)
[2018-05-21] MEDS: Levothyroxine 50 MCG TAB PO SCH (06:46)
[2018-05-21] MEDS: Lactobacillus Acidophilus 500 MU Cap PO SCH ×2 (08:07→16:42)
[2018-05-21] MEDS: levoFLOXacin 500 mg in D5W 500 MG/100 ML BAG IVPB SCH (08:08)
--- NOTE | 2018-05-21 09:00 | CP.PCM.PN ---
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 Objective - Vital Signs/Intake and Output Vital Signs (last 24 hours): Temp Pulse Resp BP Pulse Ox 97 F L 86 20 140/77 97 05/21/18 08:30 05/21/18 08:30 05/21/18 08:30 05/21/18 08:30 05/21/18 08:30 Intake and Output: 05/21/18 05/21/18 06:59 18:59 Intake Total 1750 Balance 1750 - Medications Medications: Current Medications Acetaminophen (Tylenol 325mg Tab) 650 mg PO Q4 PRN PRN Reason: Fever >100.4 F Last Admin: 05/19/18 20:20 Dose: 650 mg Amlodipine Besylate (Norvasc) 10 mg PO DAILY [facility] Last Admin: 05/20/18 09:02 Dose: 10 mg Famotidine (Pepcid) 20 mg IVP Q12 [facility] Last Admin: 05/20/18 20:33 Dose: 20 mg Levofloxacin/Dextrose (Levaquin 500mg) 500 mg in 100 mls @ 100 mls/hr IVPB DAILY [facility] PRN Reason: Protocol Last Admin: 05/21/18 08:08 Dose: 100 mls/hr Ceftriaxone Sodium 1 gm/ (Sodium Chloride) 100 mls @ 100 mls/hr IVPB DAILY [facility] PRN Reason: Protocol Last Admin: 05/20/18 10:29 Dose: 100 mls/hr Lactobacillus Acidophilus (Bacid Acidophilus) 1 cap PO BID [facility] Last Admin: 05/21/18 08:07 Dose: 1 cap Levothyroxine Sodium (Synthroid) 50 mcg PO DAILY@0630 [facility] Last Admin: 05/21/18 06:46 Dose: 50 mcg Promethazine HCl/Dextromethorphan (Phenergan Dm Syrup) 10 ml PO Q6 PRN PRN Reason: Cough Last Admin: 05/21/18 01:42 Dose: 10 ml - Labs Labs: 05/20/18 05:45 05/20/18 05:45 - Constitutional Appears: No Acute Distress - Head Exam Head Exam: ATRAUMATIC, NORMAL INSPECTION, NORMOCEPHALIC - Eye Exam Eye Exam: EOMI, Normal appearance, PERRL Pupil Exam: NORMAL ACCOMODATION, PERRL - ENT Exam ENT Exam: Mucous Membranes Moist, Normal Exam - Neck Exam Neck Exam: Full ROM, Normal Inspection. absent: Lymphadenopathy - Respiratory Exam Respiratory Exam: Prolonged Expiratory Phase, Rales, NORMAL BREATHING PATTERN - Cardiovascular Exam Cardiovascular Exam: REGULAR RHYTHM, +S1, +S2. absent: Murmur - GI/Abdominal Exam GI & Abdominal Exam: Soft, Normal Bowel Sounds. absent: Tenderness - Rectal Exam Rectal Exam: NORMAL INSPECTION - Extremities Exam Extremities Exam: Full ROM, Normal Capillary Refill, Normal Inspection. absent : Joint Swelling, Pedal Edema - Back Exam Back Exam: NORMAL INSPECTION - Neurological Exam Neurological Exam: Alert, Awake, CN II-XII Intact, Normal Gait, Oriented x3 - Psychiatric Exam Psychiatric exam: Normal Affect, Normal Mood - Skin Skin Exam: Dry, Intact, Normal Color, Warm Assessment and Plan - Assessment and Plan (Free Text) Assessment: PNEUMONIA HTN HYPOKALEMIA ANEMIA HYPOTHYROIDISM Plan: CONTINUE CURRENT RX
--- NOTE | 2018-05-21 10:52 | RAD ---
HISTORY: PNEUMONIA COMPARISON: No prior. TECHNIQUE: Chest PA and lateral FINDINGS: LUNGS: No active pulmonary disease. PLEURA: No significant pleural effusion identified. No pneumothorax apparent. CARDIOVASCULAR: Cardiac size upper limits normal. No pulmonary vascular congestion. OSSEOUS STRUCTURES: No significant abnormalities. VISUALIZED UPPER ABDOMEN: Marginal left hemidiaphragm elevation appreciated. OTHER FINDINGS: None. IMPRESSION: Upper limits normal cardiac size. No pulmonary vascular congestion. Mild left hemidiaphragm elevation. No acute infiltrate, pleural effusion or pneumothorax identified.
[2018-05-21 10:57] LABS: BLOOD UREA NITROGEN 5 mg/dl (7-17); CALCIUM 8.6 mg/dL (8.4-10.2); GFR AFRICAN-AMERICAN > 60; GFR NON-AFRICAN AMERICAN > 60
[2018-05-22] MEDS: Levothyroxine 50 MCG TAB PO SCH (06:01)
[2018-05-22] MEDS: Lactobacillus Acidophilus 500 MU Cap PO SCH (08:49)
[2018-05-22] MEDS: levoFLOXacin 500 mg in D5W 500 MG/100 ML BAG IVPB SCH (10:04)
--- NOTE | 2018-05-22 12:57 | CP.PCM.PN ---
Subjective - Date & Time of Evaluation Date of Evaluation: 05/22/18 Time of Evaluation: 08:00 - Subjective Subjective: improving less cough and no sob afebrile Objective - Vital Signs/Intake and Output Vital Signs (last 24 hours): Temp Pulse Resp BP Pulse Ox 98.1 F 82 20 153/75 H 96 05/22/18 01:00 05/22/18 08:49 05/22/18 01:00 05/22/18 08:49 05/22/18 01:00 - Medications Medications: Current Medications Acetaminophen (Tylenol 325mg Tab) 650 mg PO Q4 PRN PRN Reason: Fever >100.4 F Last Admin: 05/19/18 20:20 Dose: 650 mg Amlodipine Besylate (Norvasc) 10 mg PO DAILY [facility] Last Admin: 05/22/18 08:49 Dose: 10 mg Famotidine (Pepcid) 20 mg PO Q12 [facility] Last Admin: 05/22/18 08:49 Dose: 20 mg Ceftriaxone Sodium 1 gm/ (Sodium Chloride) 100 mls @ 100 mls/hr IVPB DAILY [facility] PRN Reason: Protocol Last Admin: 05/22/18 08:50 Dose: 100 mls/hr Lactobacillus Acidophilus (Bacid Acidophilus) 1 cap PO BID [facility] Last Admin: 05/22/18 08:49 Dose: 1 cap Levofloxacin (Levaquin) 500 mg PO DAILY [facility] Levothyroxine Sodium (Synthroid) 50 mcg PO DAILY@0630 [facility] Last Admin: 05/22/18 06:01 Dose: 50 mcg Promethazine HCl/Dextromethorphan (Phenergan Dm Syrup) 10 ml PO Q6 PRN PRN Reason: Cough Last Admin: 05/21/18 23:04 Dose: 10 ml - Labs Labs: 05/20/18 05:45 05/21/18 10:25 - Constitutional Appears: Non-toxic, Chronically Ill - Head Exam Head Exam: NORMOCEPHALIC - Eye Exam Eye Exam: PERRL - ENT Exam ENT Exam: Mucous Membranes Dry - Neck Exam Neck Exam: absent: Lymphadenopathy - Respiratory Exam Respiratory Exam: Decreased Breath Sounds - Cardiovascular Exam Cardiovascular Exam: REGULAR RHYTHM - GI/Abdominal Exam GI & Abdominal Exam: Distended, Soft - Rectal Exam Rectal Exam: Deferred - Exam Exam: NORMAL INSPECTION - Back Exam Back Exam: absent: CVA tenderness (L), CVA tenderness (R) - Neurological Exam Neurological Exam: Alert, Awake, CN II-XII Intact, Oriented x3 - Psychiatric Exam Psychiatric exam: Normal Mood - Skin Skin Exam: Dry Assessment and Plan (1) Pneumonia Status: Acute - Assessment and Plan (Free Text) Assessment: improving on IV rx cont same upon discharge follow up with Dr Spears
[2018-05-22 13:22] VITALS: TEMP 98.9
[2018-05-22 13:31] VITALS: BP 155/75; PULSE 86; RESP 19; O2SAT 97
--- NOTE | 2018-05-22 14:18 | CP.PCM.DIS ---
Provider - Provider Date of Admission: 05/19/18 13:54 Attending physician: Vasiliy Palma MD Primary care physician: Vasiliy Palma MD Time Spent in preparation of Discharge (in minutes): 30 Diagnosis - Discharge Diagnosis (1) Hypokalemia Status: Acute (2) Hypertension Status: Acute (3) Anemia Status: Acute (4) Pneumonia Status: Acute Hospital Course - Lab Results Lab Results: Micro Results 05/19/18 13:25 Blood-Venous Blood Culture - Preliminary NO GROWTH AFTER 3 DAYS 05/20/18 17:00 Sputum Gram Stain - Final 05/20/18 17:00 Sputum Sputum Culture - Final NORMAL ORAL CHRISTOPHER 05/19/18 13:00 Blood-Venous Blood Culture - Preliminary NO GROWTH AFTER 48 HOURS Most Recent Lab Values WBC 6.8 K/uL (4.8-10.8) 05/20/18 05:45 RBC 3.99 Mil/uL (3.80-5.20) 05/20/18 05:45 Hgb 10.8 g/dL (12.0-16.0) L 05/20/18 05:45 Hct 31.0 % (34.0-47.0) L 05/20/18 05:45 MCV 77.7 fl (81.0-99.0) L 05/20/18 05:45 MCH 27.0 pg (27.0-31.0) 05/20/18 05:45 MCHC 34.8 g/dL (33.0-37.0) 05/20/18 05:45 RDW 17.5 % (11.5-14.5) H 05/20/18 05:45 Plt Count 344 K/uL (130-400) 05/20/18 05:45 MPV 8.5 fl (7.2-11.7) 05/20/18 05:45 Neut % (Auto) 78.0 % (50.0-75.0) H 05/20/18 05:45 Lymph % (Auto) 13.6 % (20.0-40.0) L 05/20/18 05:45 [place] % (Auto) 8.0 % (0.0-10.0) 05/20/18 05:45 Eos % (Auto) 0.1 % (0.0-4.0) 05/20/18 05:45 Baso % (Auto) 0.3 % (0.0-2.0) 05/20/18 05:45 Neut # (Auto) 5.3 K/uL (1.8-7.0) 05/20/18 05:45 Lymph # (Auto) 0.9 K/uL (1.0-4.3) L 05/20/18 05:45 [place] # (Auto) 0.5 K/uL (0.0-0.8) 05/20/18 05:45 Eos # (Auto) 0.0 K/uL (0.0-0.7) 05/20/18 05:45 Baso # (Auto) 0.0 K/uL (0.0-0.2) 05/20/18 05:45 Neutrophils % (Manual) 87 % (42-75) H 05/19/18 13:25 Band Neutrophils % 2 % (0-2) 05/19/18 13:25 Lymphocytes % (Manual) 10 % (20-50) L 05/19/18 13:25 Monocytes % (Manual) 1 % (0-10) 05/19/18 13:25 Platelet Estimate Normal (NORMAL) 05/19/18 13:25 Hypochromasia (manual) Slight 05/19/18 13:25 Anisocytosis (manual) Slight 05/19/18 13:25 pO2 46 mm/Hg (30-55) 05/19/18 13:00 VBG pH 7.45 (7.32-7.43) H 05/19/18 13:00 VBG pCO2 42 mmHg (40-60) 05/19/18 13:00 VBG HCO3 28.2 mmol/L 05/19/18 13:00 VBG Total CO2 30.5 mmol/L (22-28) H 05/19/18 13:00 VBG O2 Sat (Calc) 87.5 % (40-65) H 05/19/18 13:00 VBG Base Excess 4.7 mmol/L (0.0-2.0) H 05/19/18 13:00 VBG Potassium 2.7 mmol/L (3.6-5.2) L 05/19/18 13:00 Sodium 138.0 mmol/L (132-148) 05/19/18 13:00 Chloride 104.0 mmol/L (98-107) 05/19/18 13:00 Glucose 128 mg/dL (65-105) H 05/19/18 13:00 Lactate 1.6 mmol/L (0.7-2.1) 05/19/18 13:00 FiO2 21.0 % 05/19/18 13:00 Sodium 141 mmol/l (132-148) 05/21/18 10:25 Potassium 3.8 MMOL/L (3.6-5.0) 05/21/18 10:25 Chloride 104 mmol/L (98-107) 05/21/18 10:25 Carbon Dioxide 24 mmol/L (22-30) 05/21/18 10:25 Anion Gap 17 (10-20) 05/21/18 10:25 BUN 5 mg/dl (7-17) L 05/21/18 10:25 Creatinine 0.6 mg/dl (0.7-1.2) L 05/21/18 10:25 Est GFR ( Amer) > 60 05/21/18 10:25 Est GFR (Non-Af Amer) > 60 05/21/18 10:25 Random Glucose 106 mg/dL (65-105) H 05/21/18 10:25 Calcium 8.6 mg/dL (8.4-10.2) 05/21/18 10:25 Thyroxine (T4) 9.18 ug/dl (5.5-11.0) 05/20/18 05:45 TSH 3rd Generation 1.70 mIU/ML (0.46-4.68) 05/20/18 05:45 Venous Blood Potassium 2.7 mmol/L (3.6-5.2) L 05/19/18 13:00 Influenza Typ A,B (EIA) Negative for flu a/b (NEGATIVE) 05/19/18 12:00 Ur L.pneumophila Ag Negative (NEGATIVE) 05/20/18 17:30 - Hospital Course Hospital Course: clinically improved with therapy Discharge Exam - Head Exam Head Exam: NORMOCEPHALIC - Eye Exam Eye Exam: EOMI, Normal appearance, PERRL Pupil Exam: NORMAL ACCOMODATION, PERRL - GI/Abdominal Exam GI & Abdominal Exam: Normal Bowel Sounds - Rectal Exam Rectal Exam: NORMAL INSPECTION - Neurological Exam Neurological exam: Alert, CN II-XII Intact, Normal Gait, Oriented x3, Reflexes Normal - Psychiatric Exam Psychiatric exam: Normal Affect, Normal Mood - Skin Skin Exam: Dry, Intact, Normal Color, Warm Discharge Plan - Follow Up Plan Condition: FAIR Disposition: HOME/ ROUTINE Patient education suggested?: Yes Instructions: Pneumonia in Adults, How to Wash Your Hands Properly, Preventing Falls, Staying Safe in the Hospital Additional Instructions: followup with dr palma Referrals: Vasiliy Palma MD [Primary Care Provider] -
[2018-05-23] MEDS ORDERED: levoFLOXacin 500 MG TAB PO SCH (09:00)
--- NOTE | 2018-05-27 09:20 | PQF ---
PROVIDER RESPONSE TEXT: SEPSIS RULED OUT REVIEWER QUERY TEXT: Conflicting Documentation Clarification A single mention of SEPSIS documented by the ER MD for the same clinical presentation appears in the record. Please clarify AFTER WORKUP if the diagnosis of SEPSIS is: -- Confirmed and current -- Confirmed, treated and resolved -- Ruled out -- Other, please specify The patient's Clinical Indicators include: History of URI symptoms x several days , not controlled by Zithromax. CXR: LLL infiltrate . WBC 8.0 w ith a L shift, 2% BANDS. Treated with Levaquin and Rocephin. Temp: 101.2, 99.7, 100.6, 101.9, 102, 99.4 HR: 109, 97, 97, 105, 96, 99, 87, 83 BP: 153/87, 143/70, 139/67, 148/66 R: 22, 16, 20, 18, 22, 20 Query created by: Nikki Riley on 05/26/2018 10:10 AM PROVIDER RESPONSE TEXT: COMMUNITY ACQUIRED PNEUMONIA--ETIOLOGY UNDETERMINED REVIEWER QUERY TEXT: Pneumonia Specificity Pneumonia is documented in the Medical Record. AFTER WORKUP please specify the type of pneumonia and the causative organism (includes probable or suspected) Such as: Type: -- Aspiration pneumonia (please also specify the aspirate) -- Bacterial (please document suspected or probable organism) -- Bronchopneumonia (please document suspected or probable organism) -- Interstitial pneumonia -- Organizing pneumonia / BOOP -- Tuberculosis, pulmonary -- Viral -- Other, please specify -- Unable to determine The patient's Clinical Indicators include: History of URI symptoms x several days , not controlled by Zithromax. Temp 101.2, HR 109, Resp: 22. C XR: LLL infiltrate . WBC 8.0 with a L shift, 2% BANDS. Awaiting Mycoplasma and Legionella. Treated w ith Levaquin and Rocephin. Query created by: Nikki Riley on 05/26/2018 10:11 AM Electronically signed by: Vasiliy Spears MD 05/27/2018 9:16 AM
== END 2018-05-22 16:55 | disposition home or self-care (01) | DRG 195 ==
LOC: H.ER 09:31 → H.ERHOLD 13:54 → H.PEDS 14:44
PROVIDERS: ADMIT Internal Medicine Pulmonary Disease; ATTEND Internal Medicine Pulmonary Disease
PROC: 3E0F73Z Introduction of Anti-inflammatory into Respiratory Tract, Via Natural or Artificial Opening (ICD-10-PCS; principal; 2018-05-19)
DX: J18.9 Pneumonia, unspecified organism (principal); E87.6 Hypokalemia; E03.9 Hypothyroidism, unspecified; I10 Essential (primary) hypertension; D64.9 Anemia, unspecified

== ENCOUNTER 2019-02-11 09:14 | Emergency (ER) | payer OTHER, BC ==
[2019-02-11 09:15] VITALS: BMI 35.4
[2019-02-11 09:18] VITALS: RESP 18
[2019-02-11 09:33] VITALS: TEMP 98.4
--- NOTE | 2019-02-11 10:20 | ED PDOC ---
Lower Extremity Pain/Injury <Yemi Mansfield III - Last Filed: 02/11/19 11:03> Additional History Per: Patient Additional Complaint(s): 58 y/o F with PMH of HTN and hypothyroid comes to the ER c/o 1 day hx of R knee swelling, discomfort and limping. Patient reports it all started yesterday, patient used some motrin at home and it helped her with pain and swelling. This morning she started feeling pain/discomfort with walking, no pain at rest, + swelling about and behind the knee and + LROM due to swelling and discomfort,denies any erythema, fever, calf pain or trauma. Has been bowling since past 4 weeks. Denies any weakness/numbness and tingling. PMH: HTN and Hypothyroid PSH: Denies Allg: ZAMZAM-I SH: Denies alcohol, smoking or illicit drug use FH: Denies ROS: As per HPI <Ruben Soria - Last Filed: 02/11/19 11:16> Time Seen by Provider: 02/11/19 09:21 Chief Complaint (Nursing): Lower Extremity Problem/Injury Supervising Attending Note - Attestation: I have personally seen and examined this patient.: Yes I have fully participated in the care of the patient.: Yes I have reviewed all pertinent clinical information, including history, physical exam and plan: Yes - Notes: Notes:: pt seen/examined w resident agree w findings 58yo F w atraumatic R knee pain, xray report reviewed, refer to PMD for poss ortho appt if pain persists. Rec ZAMZAM, NSAIDs, eventual PT/ strengthening exercises/ no indication for emergent imaging otherwise. no calf tenderness or pain. <Yemi Mansfield III - Last Filed: 02/11/19 11:03> Past Medical History Vital Signs: Last Vital Signs Temp 98.4 F 02/11/19 09:16 Pulse 90 02/11/19 09:16 Resp 18 02/11/19 09:16 BP 163/76 H 02/11/19 09:16 Pulse Ox 98 02/11/19 10:28 <Yemi Mansfield III - Last Filed: 02/11/19 11:03> Vital Signs: Last Vital Signs Temp 98.4 F 02/11/19 09:16 Pulse 90 02/11/19 09:16 Resp 18 02/11/19 09:16 BP 163/76 H 02/11/19 09:16 Pulse Ox 98 02/11/19 09:16 - Medical History PMH: HTN, Hypothyroidism Denies: Chronic Kidney Disease - Surgical History Surgical History: Endoscopy - Family History Family History: States: Unknown Family Hx <Dexter Soriajackelyn - Last Filed: 02/11/19 11:16> - Home Medications Home Medications: Ambulatory Orders Medication Instructions Recorded amLODIPine [Norvasc] 10 mg PO DAILY 05/02/17 Levothyroxine [Synthroid] 50 mg PO DAILY 05/19/18 Multivitamin [Multi-Vitamin Daily] 1 tab PO DAILY 05/19/18 Lactobacillus Acidophilus [Bacid 1 cap PO BID #14 cap 05/22/18 Acidophilus] Promethazine DM [Phenergan DM 10 ml PO Q6 PRN 7 Days #1 dose 05/22/18 Syrup] levoFLOXacin [Levaquin] 500 mg PO DAILY #7 tab 05/22/18 Ibuprofen [Motrin] 600 mg PO Q6H PRN #30 tab 02/11/19 - Allergies Allergies/Adverse Reactions: Allergies Allergy/AdvReac Type Severity Reaction Status Date / Time ZAMZAM Inhibitors Allergy Intermediate ANGIOEDEMA Verified 05/02/17 17:59 Review of Systems Constitutional: Negative for: Fever, Chills Eyes: Negative for: Pain ENT: Negative for: Ear Pain Cardiovascular: Negative for: Chest Pain, Palpitations, Orthopnea Respiratory: Negative for: Cough, Shortness of Breath, Hemoptysis Gastrointestinal: Negative for: Nausea, Vomiting, Abdominal Pain, Diarrhea Genitourinary Female: Negative for: Dysuria, Frequency Musculoskeletal: Positive for: Other (+ R knee discomfort). Negative for: Neck Pain, Shoulder Pain Skin: Negative for: Rash Neurological: Negative for: Weakness, Numbness, Confusion Psych: Negative for: Anxiety <Ruben Soria - Last Filed: 02/11/19 11:16> Physical Exam - Physical Exam Appears: Positive for: No Acute Distress Head Exam: Positive for: ATRAUMATIC, NORMAL INSPECTION, NORMOCEPHALIC Skin: Positive for: Normal Color. Negative for: Diaphoresis Eye Exam: Positive for: Normal appearance, EOMI, PERRL ENT: Positive for: Normal ENT Inspection Neck: Positive for: Normal Cardiovascular/Chest: Positive for: Regular Rate, Rhythm, Chest Non Tender Respiratory: Positive for: Normal Breath Sounds. Negative for: Decreased Breath Sounds, Accessory Muscle Use, Crackles Pulses-Post. Tibialis (L): 2+ Pulses-Post. Tibialis (R): 2+ Gastrointestinal/Abdominal: Positive for: Normal Exam, Soft. Negative for: Tenderness Back: Positive for: Normal Inspection. Negative for: L CVA Tenderness, R CVA Tenderness Extremity: Positive for: Capillary Refill (normal), Swelling (behing the knee and mild above the knee, no erythema or tenderness, LROM). 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 - Motrin 600mg STAT - Xray- Knee Right - Reevaluation Case discussed with Dr. Mansfield Patient understands and agrees with the plan. Xray knee: Reviewed, no acute fcx Re-evaluation Time: 11:15 Condition: Improved <Ruben Soria - Last Filed: 02/11/19 11:16> Medical Decision Making Medical Decision Making: Patellofemoral pain syndrome, Jasmine Cyst <Ruben Soria - Last Filed: 02/11/19 11:16> Disposition <Yemi Mansfield III - Last Filed: 02/11/19 11:03> - Patient ED Disposition Is Patient to be Admitted: No - Disposition Disposition: Routine/Home Disposition Time: 11:08 <Ruben Soria - Last Filed: 02/11/19 11:16> - Clinical Impression Clinical Impression: Patella-femoral syndrome, Jasmine cyst - Disposition Referrals: Vasiliy Spears MD [Family Provider] - David Bryant III, MD [Staff Provider] - Condition: FAIR Additional Instructions: rest for few days C/w ibuprofen F/u with PMD in 1 week C/w light exercise hinged knee brace Consider ortho Return to ER if symptoms get worse Prescriptions: Ibuprofen [Motrin] 600 mg PO Q6H PRN #30 tab PRN Reason: Pain, Moderate (4-7) Forms: [facility] (Tunisian), [facility] ED School/Work Excuse Print Language: LITHUANIAN
--- NOTE | 2019-02-11 10:47 | RAD ---
Date of service: 02/11/2019 PROCEDURE: Right Knee Radiographs. HISTORY: Swelling above and behind the R knee,r/o jasmine cys COMPARISON: None. FINDINGS: BONES: No fracture.. JOINTS: Tibial spine spurring medial tibial spine spurring. JOINT EFFUSION: A small suprapatellar joint effusion is possible. OTHER FINDINGS: quadriceps insertional enthesophyte. IMPRESSION: No fracture or lytic lesions. quadriceps insertional enthesophyte. Comments if there is any clinical concern for a possible Jasmine cyst, consider ultrasound of the knee.
[2019-02-11 11:37] VITALS: BP 145/87; PULSE 70; O2SAT 99
== END 2019-02-11 11:14 | disposition home or self-care (01) ==
LOC: H.ER 09:14
DX: M22.2X1 Patellofemoral disorders, right knee (principal); M71.21 Synovial cyst of popliteal space [Baker], right knee; E03.9 Hypothyroidism, unspecified; I10 Essential (primary) hypertension